=== PATIENT | female | born 1990 | race African-American/Black ===

== ENCOUNTER 2017-08-22 20:55 | Outpatient (CLI) | payer MEDICAID ==
[2017-08-22 21:26] VITALS: BP 135/72
--- NOTE | 2017-08-22 22:39 | Ultrasound Report ---
FINAL REPORT PROCEDURE: US OB LIMITED TECHNIQUE: HISTORY: THINKS WATER BROKE, NITRAZINE NEG COMPARISON: No prior studies are available for comparison. FINDINGS: A single live intrauterine gestation is identified with cephalic presentation. heart rate is 145 beats per minute. Amniotic fluid index is 18.7. IMPRESSION: Amniotic fluid index is 18.7.
== END 2017-08-23 00:12 | disposition home or self-care (01) ==
LOC: TRG 20:55
PROVIDERS: ATTEND Obstetrics & Gynecology
DX: O48.0 Post-term pregnancy (principal); Z3A.40 40 weeks gestation of pregnancy
CPT/HCPCS: 59025; 76815

== ENCOUNTER 2017-08-24 01:51 | Outpatient (CLI) | payer MEDICAID ==
[2017-08-24 04:19] VITALS: BP 142/86
--- NOTE | 2017-08-24 07:05 | Ultrasound Report ---
FINAL REPORT EXAM: US OB LIMITED HISTORY: OMSHE TECHNIQUE: A limited transabdominal OB sonogram was obtained for evaluation of the MOSHE. FINDINGS: Measurements of the abdominal fluid volume in all 4 quadrants results and a total measurement of 22.1 centimeters which is within normal range. The fetus is in cephalic presentation. The heart rate is 156 BPM. IMPRESSION: MOSHE of 22.1 centimeters. Cephalic presentation. heart rate of 156 BPM
== END 2017-08-24 07:05 | disposition home or self-care (01) ==
LOC: TRG 01:51
PROVIDERS: ATTEND Obstetrics & Gynecology
DX: O47.1 False labor at or after 37 completed weeks of gestation (principal); Z3A.39 39 weeks gestation of pregnancy
CPT/HCPCS: 59025; 76815